=== PATIENT | female | born 1960 | race Caucasian/White ===

== ENCOUNTER 2023-10-15 16:34 | Emergency (ER) | payer BC ==
[~2023-10-15] VITALS: Ht 167.6 cm; Wt 89.4 kg
[2023-10-15 16:34] VITALS: BP 163/92; PULSE 67; RESP 18; TEMP 98.4; O2SAT 97
[2023-10-15] MEDS ORDERED: NS 1000ML 1,000 ML ONE (17:02)
[2023-10-15 17:04] VITALS: BP 160/88; PULSE 62; RESP 18; TEMP 98.4; O2SAT 97
[2023-10-15] MEDS: NS 1000ML 1,000 ML IV SCH (17:04)
[2023-10-15] MEDS ORDERED: SUBLIMAZE 100MCG/2ML ONE (17:05)
[2023-10-15] MEDS ORDERED: ZOFRAN ONE (17:05)
[2023-10-15] MEDS: ZOFRAN IV STA (17:08)
[2023-10-15] MEDS: SUBLIMAZE 100MCG/2ML IV STA (17:08)
[2023-10-15 17:10] LABS: BASOPHIL % 0.5 % (0.0-0.2); EOSINOPHIL # 0.1 10^3/uL (0.0-0.2); HEMATOCRIT(ML) 44.8 % (36.0-46.0); HEMOGLOBIN 15.3 g/dL (12.0-15.0); LYMPHOCYTES # 1.75 10^3/uL1 (1.0-4.8); LYMPHOCYTES % 29.8 % (24.0-44.0); MEAN CORP HGB 31.9 pg (26-34); MEAN CORP HGB CONCENTRATION 34.2 g/dL (33-36.5); MEAN CORP VOLUME 93.3 fL (78-100); MONOCYTES # 0.5 10^3/uL (0.3-0.8); MONOCYTES % 7.8 % (5.0-12.0); NEUTROPHIL # 3.5 10^3/uL (1.8-7.7); PLATELET COUNT 216 10^3/uL (150-400); RED CELL DISTRIBUTION WIDTH 11.8 % (11.5-14.5); WHITE BLOOD CELL 5.9 10^3/uL (4.5-11.0)
[2023-10-15 17:12] LABS: +ADD MANUAL DIFF(NO CHRG) NO
[2023-10-15 17:23] LABS: PROTHROMBIN PROTIME 10.7 SEC (9.7-11.6)
[2023-10-15 17:29] LABS: ALANINE AMINOTRANSFERASE(ML) 42 U/L (12-78); ALBUMIN(ML) 3.7 g/dL (3.4-5.0); ALBUMIN/GLOBULIN RATIO 1.088; ALKALINE PHOSPHATASE 86 U/L (50-136); ANION GAP 12.2; ASPARTATE AMINO TRANSFERASE 34 U/L (0-35); CALCIUM 8.9 mg/dL (8.4-10.5); CARBON DIOXIDE 29.5 mmol/L (20.0-32); CREATININE SERUM 1.11 mg/dL (0.59-1.40); EST GFR, NON-AA 49.5 (>/=60); GLUCOSE 97 mg/dL (74-106); POTASSIUM 3.7 mmol/L (3.6-5.2); SODIUM 142 mmol/L (132-145)
[2023-10-15 17:39] VITALS: BP 136/75; PULSE 61; RESP 18; TEMP 98.4; O2SAT 97
[2023-10-15 18:25] LABS: TROPONIN I HIGH SENSITIVITY < 4 ng/L (0-50)
[2023-10-15 18:30] VITALS: BP 134/66; PULSE 68; RESP 18; O2SAT 98
[2023-10-15] MEDS: LACTATED RINGERS 1,000 ML IV SCH (18:35)
[2023-10-15 19:25] VITALS: BP 167/76; PULSE 70; RESP 16; TEMP 98.4; O2SAT 96
== END 2023-10-15 19:25 | disposition home or self-care (01) ==
LOC: ER 16:34
DX: S32.012A Unstable burst fracture of first lumbar vertebra, initial encounter for closed fracture (principal); S32.010A Wedge compression fracture of first lumbar vertebra, initial encounter for closed fracture; I10 Essential (primary) hypertension; Z88.0 Allergy status to penicillin; Z88.1 Allergy status to other antibiotic agents; Z88.5 Allergy status to narcotic agent; W11.XXXA Fall on and from ladder, initial encounter; Y93.89 Activity, other specified; Y92.89 Other specified places as the place of occurrence of the external cause; Y99.8 Other external cause status
CPT/HCPCS: 99291; 70450; 96374; 96361; 71045; 96375; 72170; 71260; 72125; 74177; 73610; 80053; 85025; 36415; 84484; 85610; 85730; 93005; J7030; J2405; J3010; Q9966; 86900